=== PATIENT | female | born 1975 | race Caucasian/White ===

== ENCOUNTER 2022-08-19 12:06 | Emergency (ER) | payer OTHER, SELFPAY ==
[2022-08-19 12:20] VITALS: BP 112/70; PULSE 73; RESP 18; TEMP 36.8; O2SAT 100
[2022-08-19] MEDS: ONDANSETRON 4 MG ODT SL (13:48)
[2022-08-19] MEDS: KETOROLAC 10 MG TABLET PO (13:48)
[2022-08-19] MEDS: OXYCODONE IR 5 MG TABLET PO (13:48)
--- NOTE | 2022-08-19 15:02 | ED_ITS ---
HPI - Recheck/Abnormal Lab/Rx <JARRELL Rausch - Last Filed: 08/19/22 15:07> General Chief Complaint: Recheck/Abnormal Lab/Rx Stated Complaint: sent by [facility]/post surgery pain Time Seen by Provider: 08/19/22 13:27 Source: patient Mode of arrival: Ambulatory History of Present Illness HPI narrative: This is a 47-year-old female presents to the emergency department after [place] buttocks, abdomen and hips. She reports she had proximally 5 L of liposuction and presents today for pain. She states that she was given a short course of pain medication and this was used on her flight to the [facility] and she is out of pain medication. Has been using Tylenol and ibuprofen. States that Percocet makes her sick but she has had oxycodone in the past which has been okay. She also reports no bowel movement since surgery. She denies any pain related to constipation, denies nausea vomiting, fever chills, any illness, denies any complication to any of her surgical sites, denies any abnormal drainage. Related Data Previous Rx's Medication Instructions Recorded lidocaine 5 % topical patch 1 patch topical DAILY PRN pain #30 08/19/22 ea ondansetron 4 mg disintegrating 4 mg PO Q8H PRN nausea and 08/19/22 tablet vomiting #10 tabs oxycodone 5 mg tablet 5 mg PO TID PRN pain #20 tabs 08/19/22 polyethylene glycol 3350 17 17 g PO BID PRN constipation #510 08/19/22 gram/dose oral powder (Miralax) grams Allergies Allergy/AdvReac Type Severity Reaction Status Date / Time antibiotic Allergy Unknown Uncoded 08/19/22 12:25 Review of Systems <JARRELL Rausch - Last Filed: 08/19/22 15:07> Review of Systems ROS Unobtainable: All systems reviewed & are unremarkable except as noted in HPI and below Patient History <JARRELL Rausch - Last Filed: 08/19/22 15:07> Social History Smoking Status: Never smoker Smoking Status: Never smoker alcohol intake frequency: 0-2 drinks per day Substance Use Type: marijuana Exam <JARRELL Rausch - Last Filed: 08/19/22 15:07> Narrative Exam Narrative: Reviewed vitals signs and nursing notes. General: Pleasant, sitting upright, in no acute distress, well groomed, afebrile CV: regular rate and rhythm, warm extremities Respiratory: normal work of breathing, without tachypnea or hypoxia. Skin: brisk capillary refill, without erythema, discoloration, purulence drainage, or dehiscence of any wound Neuro: clear speech and normal cognition, A&O x3, GCS 15, no focal motor or sensation deficits Initial Vital Signs Initial Vital Signs: Vital Signs Temperature 98.3 F 08/19/22 12:20 Pulse Rate 73 08/19/22 12:20 Respiratory Rate 18 08/19/22 12:20 Blood Pressure 112/70 08/19/22 12:20 Pulse Oximetry 100 08/19/22 12:20 Oxygen Delivery Method Room Air 08/19/22 12:20 <Chata Cook DO - Last Filed: 08/19/22 19:47> Initial Vital Signs Initial Vital Signs: Vital Signs Temperature 98.3 F 08/19/22 12:20 Pulse Rate 73 08/19/22 12:20 Respiratory Rate 18 08/19/22 12:20 Blood Pressure 112/70 08/19/22 12:20 Pulse Oximetry 100 08/19/22 12:20 Oxygen Delivery Method Room Air 08/19/22 12:20 Course <JARRELL Rausch - Last Filed: 08/19/22 15:07> Orders Ordered: Discontinued Medications Ketorolac Tromethamine (Ketorolac 10 Mg Tablet) 10 mg PO NOW ONE Stop: 08/19/22 13:38 Last Admin: 08/19/22 13:48 Dose: 10 mg Documented By: PADMAJA Ondansetron HCl (Ondansetron 4 Mg Odt) 4 mg SL NOW ONE Stop: 08/19/22 13:38 Last Admin: 08/19/22 13:48 Dose: 4 mg Documented By: PADMAJA Oxycodone HCl (Oxycodone Ir 5 Mg Tablet) 5 mg PO NOW ONE Stop: 08/19/22 13:38 Last Admin: 08/19/22 13:48 Dose: 5 mg Documented By: PADMAJA Vital Signs Vital signs: Vital Signs - 8 hr 08/19/22 12:20 Temperature 98.3 F Pulse Rate 73 Respiratory Rate 18 Blood Pressure 112/70 Pulse Oximetry 100 Oxygen Delivery Method Room Air <Chata Cook DO - Last Filed: 08/19/22 19:47> Orders Ordered: Discontinued Medications Ketorolac Tromethamine (Ketorolac 10 Mg Tablet) 10 mg PO NOW ONE Stop: 08/19/22 13:38 Last Admin: 08/19/22 13:48 Dose: 10 mg Documented By: PADMAJA Ondansetron HCl (Ondansetron 4 Mg Odt) 4 mg SL NOW ONE Stop: 08/19/22 13:38 Last Admin: 08/19/22 13:48 Dose: 4 mg Documented By: PADMAJA Oxycodone HCl (Oxycodone Ir 5 Mg Tablet) 5 mg PO NOW ONE Stop: 08/19/22 13:38 Last Admin: 08/19/22 13:48 Dose: 5 mg Documented By: PADMAJA Vital Signs Vital signs: Vital Signs - 8 hr 08/19/22 12:20 Temperature 98.3 F Pulse Rate 73 Respiratory Rate 18 Blood Pressure 112/70 Pulse Oximetry 100 Oxygen Delivery Method Room Air MDM - Recheck/Abnormal Lab/Rx <JARRELL Rausch - Last Filed: 08/19/22 15:07> [facility] Narrative Medical decision making narrative: Chief Complaint: Postsurgical Pain Multiple etiologies for patient's complaint considered including, but not limited to: Postoperative pain, cellulitis, bacteremia, dehiscence, compartment syndrome I have independently reviewed the patient's vital signs and nursing notes as well as prior records if available. Patient denies any complications from operation, reports that she is only having pain and requesting med refill. We discussed pain control with stool softeners to include NSAIDs, oxycodone as needed and MiraLax. She will start these now, is currently on antibiotics, no signs of infection, afebrile, without vomiting, and without wound complications. Social considerations that may affect disposition: none Questions are addressed and there is agreement with the plan and for follow-up. I consulted with the ED attending physician Dr. Melchor as needed for higher level of care considerations and they were available for discussion and recommendations regarding plan of care and diagnostic testing. Patient is appropriate for outpatient management. Discharge Plan Departure Patient Disposition: Home Clinical Impression: Encounter for medication refill Instructions: DI for Liposuction, DI for Breast Lift Activity Restrictions/Additional Instructions: *You have been diagnosed with postsurgical pain which is expected related to fluid shifts, swelling, and remodeling after surgical intervention. For pain control, take ibuprofen g every 6 hours schedule, with food and water. Okay to use 1 pain pill every 4-6 hours as needed for severe pain, make sure you are taking MiraLax twice a day until you are having soft stools and then you can reduce to 1 time a day. If you are having vomiting related to the pain pills, use Zofran every 8 hours x1. Please come back to the emergency department if you fever, chills, worsening pain or pain out of proportion with swelling or other concerning new symptoms. *What to do: *Please continue to take your regular medications as directed. [x ] New medication prescriptions sent to your pharmacy: [ ] [ ] New medication written as a paper prescription [ ] No new medications given *Please call and schedule follow up with your primary care provider in 2-3 days, at least for an update. Let them know you were seen in the Emergency Department for the above problem. We will electronically transmit a record of today's note if your PCP or specialist is in our system. *If you do not have a primary care provider please contact [phone] to establish care with one of the [facility] primary care providers. *Return to the Emergency Department for worsening symptoms, inability to keep liquids down, fever greater than 101F, chills, or other concerning symptom. Prescriptions: New oxycodone 5 mg tablet 5 mg PO TID PRN (Reason: pain) Qty: 20 0RF polyethylene glycol 3350 [Miralax] 17 gram/dose powder 17 g PO BID PRN (Reason: constipation) Qty: 510 0RF lidocaine 5 % adhesive patch,medicated 1 patch topical DAILY PRN (Reason: pain) Qty: 30 0RF Rx Instructions: leave on most painful area for up to 12 hrs ondansetron 4 mg tablet,disintegrating 4 mg PO Q8H PRN (Reason: nausea and vomiting) Qty: 10 0RF Referrals: Miscellaneous,Doctor, [Primary Care Provider] - Stand Alone Forms: Patient Portal/API <Chata Cook DO - Last Filed: 08/19/22 19:47> Cosign ED Attending Cosignature Attestation: I was immediately available in the department for consultation. Documentation has been reviewed. Case not discussed.
== END 2022-08-19 13:55 | disposition home or self-care (01) ==
PROVIDERS: Emergency Provider Nurse Practitioner Critical Care Medicine
DX: Z76.0 Encounter for issue of repeat prescription (principal); G89.18 Other acute postprocedural pain
CPT/HCPCS: 99283